=== PATIENT | female | born 1990 | race Caucasian/White ===

== ENCOUNTER 2017-12-05 19:17 | Observation (INO) | payer MEDICAID ==
[~2017-12-05] VITALS: Ht 167.6 cm; Wt 88.5 kg
[~2017-12-05 19:17] MED LIST: PRE NATAL
[2017-12-05] MEDS ORDERED: TERBUTALINE SULFATE 1MG/ML VIAL SUBCUT ONE (20:45)
[2017-12-05] MEDS ORDERED: LACTATED RINGERS 1,000 ML IV SCH (20:45)
[2017-12-05] MEDS ORDERED: TERBUTALINE SULFATE 1MG/ML VIAL SUBCUT NR (20:46)
[2017-12-05 21:44] LABS: CLARITY URINE CLEAR (CLEAR); COLOR URINE YELLOW (YELLOW); KETONES URINE TRACE (NEGATIVE); LEUKOCYTE ESTERASE URINE NEGATIVE (NEGATIVE); NITRITE URINE NEGATIVE (NEGATIVE); OCCULT BLOOD URINE TRACE (NEGATIVE); PH URINE 5.5 (4.5-8.0); PROTEIN URINE NEGATIVE (NEGATIVE); SPECIFIC GRAVITY URINE 1.033 (1.005-1.030)
[2017-12-05] MEDS ORDERED: ACETAMINOPHEN 500MG TABLET PO NR (22:14)
[2017-12-05] MEDS ORDERED: CITRIC ACID/SODIUM CITRATE SOLN 30ML UDC PO NR (22:15)
== END 2017-12-05 23:30 | disposition home or self-care (01) ==
LOC: L&D 19:17
PROVIDERS: ADMIT Obstetrics & Gynecology; ATTEND Obstetrics & Gynecology
DX: O26.892 Other specified pregnancy related conditions, second trimester (principal); R10.30 Lower abdominal pain, unspecified; M54.5 Low back pain; Z3A.21 21 weeks gestation of pregnancy
CPT/HCPCS: 81003; 96372; 99281; G0378; J3105; J7120; 96360

== ENCOUNTER 2018-02-25 10:04 | Observation (INO) | payer OTHER, MEDICAID ==
[~2018-02-25] VITALS: Ht 167.6 cm; Wt 95.3 kg
== END 2018-02-25 11:50 | disposition home or self-care (01) ==
LOC: L&D 10:04
PROVIDERS: ADMIT Obstetrics & Gynecology; ATTEND Obstetrics & Gynecology
DX: O26.893 Other specified pregnancy related conditions, third trimester (principal); M54.5 Low back pain; Z3A.33 33 weeks gestation of pregnancy
CPT/HCPCS: 99281; G0378; 96360; 96372

== ENCOUNTER 2018-04-04 18:54 | Observation (INO) | payer OTHER, MEDICAID ==
[~2018-04-04] VITALS: Ht 167.6 cm; Wt 96.6 kg
[2018-04-04] MEDS ORDERED: ACETAMINOPHEN 500MG TABLET PO SCH (20:00)
== END 2018-04-04 21:30 | disposition home or self-care (01) ==
LOC: 8 EST LDRP 18:54
PROVIDERS: ADMIT Obstetrics & Gynecology; ATTEND Obstetrics & Gynecology
DX: O26.893 Other specified pregnancy related conditions, third trimester (principal); R10.30 Lower abdominal pain, unspecified; Z3A.38 38 weeks gestation of pregnancy
CPT/HCPCS: 99281; G0378